=== PATIENT | female | born 1955 | race Caucasian/White ===

== ENCOUNTER 2022-10-30 08:44 | Outpatient (RCR) | payer OTHER, MEDICARE, SELFPAY ==
--- NOTE | 2022-10-30 13:05 | OPREHPOC ---
Outpatient Therapy Plan of Care This is a Multidisciplinary Plan of Care that may contain components documented by all disciplines (PT, OT, and ST.) PT Problem 1 PT Problem #1 Knowledge Deficit PT Goal 1 Goal Patient to demonstrate independence with HEP Target Visit 12 PT Problem 2 PT Problem #2 Pain PT Goal 1 Goal Patient to report highest pain at 2/10 Target Visit 12 PT Problem 3 PT Problem #3 Impaired Range of Motion PT Goal 1 Goal Patient to report R shoulder flexion to 160 deg to improve ability to reach into cabinets Target Visit 12 PT Problem 4 PT Problem #4 Impaired Strength PT Goal 1 Goal Patient to demonstrate 5/5 strength of R shoulder to return to heavy house hold tasks Target Visit 12 PT Problem 5 PT Problem #5 Impaired Functional Mobil PT Goal 1 Goal 1. Patient to demonstrate ability to reach to back to return to washing her back 2. Patient to report ability to fix her hair with no increase in pain Target Visit 12
--- NOTE | 2022-10-30 13:05 | PTOPEVAL1 ---
Assessment and note entered by Kaity Merino DPT Evaluation Information Diagnosis R shoulder pain Onset 10/23/22 Subjective Information Patient reports R shoulder pain start started about 6 months ago after throwing a ball. She reports since then she has had lateral arm pain that has not changed. Patient reports difficulty with sleeping on the R side, reaching to wash her back and fixing her hair. She reports she has not had any imaging done to this point. Reported Pain Level Pain Score 0: Self Report Assessment PT Clinical Summary Patient is a 67 year old female who presents to PT with R shoulder pain. Patient demonstrates decreased R shoulder PROM, decreased R shoulder strength and postitive testing for involvement of supraspinatus limiting her ability to reach behind her back, sleep on her R side and fix her hair. She would benefit from skilled PT to address impairments and return to PLOF. Plan of Care Interventions Electrical Stimulation,Hot Pack/Cold Pack,Manual Therapy,Mechanical Traction,Neuro Re-education, Patient/Caregiver Educati,Therapeutic Activities, Therapeutic Exercise,Self-Care/Home Management PT Services Indicated Yes Treatment Frequency and 2x weekly for 12 visits Duration These treatments will address the objective and functional deficits as defined above. The patient will be advanced safely and appropriately in order for the patient to progress towards his/her prior level of function. Additional exercises will be introduced and as well as a comprehensive home exercise program upon discharge, if needed, ?to ensure carryover of functional gains achieved in the clinic. This treatment plan has been reviewed and agreement upon by the patient.
--- NOTE | 2022-12-14 14:23 | OPREHPOC ---
Outpatient Therapy Plan of Care This is a Multidisciplinary Plan of Care that may contain components documented by all disciplines (PT, OT, and ST.) PT Problem 1 PT Problem #1 Knowledge Deficit PT Goal 1 Goal Patient to demonstrate independence with HEP Target Visit 12 Comment patient complaint with current HEP, continue to progress PT Problem 2 PT Problem #2 Pain PT Goal 1 Goal Patient to report highest pain at 2/10 Target Visit 12 Comment highest pain level has decreased to 4/10, continue to address PT Problem 3 PT Problem #3 Impaired Range of Motion PT Goal 1 Goal Patient to report R shoulder flexion to 170 deg to improve ability to reach into cabinets Target Visit 12 Comment patient achieved goal to reach 160 deg of R shoulder flexion, goal updated PT Problem 4 PT Problem #4 Impaired Strength PT Goal 1 Goal Patient to demonstrate 5/5 strength of R shoulder to return to heavy house hold tasks Target Visit 12 Comment patient has improved strength, however has not fully met goal yet PT Problem 5 PT Problem #5 Impaired Functional Mobil PT Goal 1 Goal 1. Patient to demonstrate ability to reach to back to return to washing her back 2. Patient to report ability to fix her hair with no increase in pain Target Visit 12 Comment patient has reported more functional reach with L UE, continue to progress
--- NOTE | 2022-12-14 14:23 | PTOPPROGNS ---
Assessment and note entered by Kaity Merino DPT Evaluation Information Assessment Status Progress Diagnosis R shoulder pain Onset 10/23/22 Subjective Information Patient reports some pain today in the R shoulder. She notes that the pain has not been higher than 4/10 in the past week. She states that she has been sleeping better during the night since initiating physical therapy due to decreased pain. patient reports she has also gained the ability to reach behind her back to put her bra on which she had difficulty with before physical therapy. Assessment PT Clinical Summary Patient has attended 10 visits of skilled physical therapy for R shoulder pain, making good progress towards therapy goals. Today she demonstrates improvements in R shoudler ROM and strength, however she still has slight limitations compared to L kyung. She reported increased functional reach with R shoulder, expressed she can now reach behind her back to perform bathing and dressing activities. Patient also reported decreased difficulty with sleeping. Increased repetitions with strenghtening exercises and initiated close chained exercises with UE this date. Appropriate to continue skilled therapy to continue to address ROM, strength, and function. Plan of Care Interventions Electrical Stimulation,Hot Pack/Cold Pack,Manual Therapy,Mechanical Traction,Neuro Re-education, Patient/Caregiver Educati,Therapeutic Activities, Therapeutic Exercise,Self-Care/Home Management PT Services Indicated Yes Treatment Frequency and continue 2x weekly for remaining 2 visits Duration These treatments will address the objective and functional deficits as defined above. The patient will be advanced safely and appropriately in order for the patient to progress towards his/her prior level of function. Additional exercises will be introduced and as well as a comprehensive home exercise program upon discharge, if needed, ?to ensure carryover of functional gains achieved in the clinic. This treatment plan has been reviewed and agreement upon by the patient.
--- NOTE | 2022-12-20 14:54 | OPREHPOC ---
Outpatient Therapy Plan of Care This is a Multidisciplinary Plan of Care that may contain components documented by all disciplines (PT, OT, and ST.) PT Problem 1 PT Problem #1 Knowledge Deficit PT Goal 1 Goal Patient to demonstrate independence with HEP Target Visit 12 Progress Met Comment patient complaint with current HEP, continue to progress PT Problem 2 PT Problem #2 Pain PT Goal 1 Goal Patient to report highest pain at 2/10 Target Visit 12 Progress Met Comment highest pain level has decreased to 4/10, continue to address PT Problem 3 PT Problem #3 Impaired Range of Motion PT Goal 1 Goal Patient to report R shoulder flexion to 170 deg to improve ability to reach into cabinets Target Visit 12 Progress Met Comment patient achieved goal to reach 160 deg of R shoulder flexion, goal updated PT Problem 4 PT Problem #4 Impaired Strength PT Goal 1 Goal Patient to demonstrate 5/5 strength of R shoulder to return to heavy house hold tasks Target Visit 12 Progress Met Comment patient has improved strength, however has not fully met goal yet PT Problem 5 PT Problem #5 Impaired Functional Mobil PT Goal 1 Goal 1. Patient to demonstrate ability to reach to back to return to washing her back 2. Patient to report ability to fix her hair with no increase in pain Target Visit 12 Progress Met Comment patient has reported more functional reach with L UE, continue to progress
--- NOTE | 2022-12-20 14:56 | PTOPDC ---
Assessment and note entered by Kaity Merino DPT Evaluation Information Assessment Status Re-evaluation Diagnosis R shoulder pain Onset 10/23/22 Subjective Information Patient reports she is 95% improved since starting PT. She reports she is able to complete all house hold tasks at PLOF. She reports independence with HEP Reported Pain Level Pain Score 0: Self Report Assessment PT Clinical Summary Patient was seen for 12 visits of skilled PT with great progress towards goals. Patient met all goals set during POC. She demonstrates 171deg of R shoulder flexion and 5/5 strenth with reports of ability to return to ADLs at PLOF. Patient is independent with HEP and appropriate for DC at this time. Plan of Care PT Services Indicated No
== END 2022-12-20 14:27 | disposition home or self-care (01) ==
LOC: CHSPT 08:44
PROVIDERS: PCP Family Medicine; Visit Provider Family Medicine
DX: M25.511 Pain in right shoulder (principal)
CPT/HCPCS: 97014; 97110; 97140; 97161; G0283